=== PATIENT | male | born 2000 | race African-American/Black ===

== ENCOUNTER 2022-11-07 21:17 | Emergency (ER) | payer OTHER, SELFPAY ==
--- NOTE | ~2022-11-07 | XR_ITS ---
EXAMINATION: XR CHEST CLINICAL INFORMATION: Cough, congestion, chest pain. COMPARISON: None available. TECHNIQUE: 2 views of the chest were obtained. FINDINGS: Normal appearance of the cardiomediastinal silhouette. Mild peribronchial thickening. No focal infiltrate, pleural effusion or pneumothorax. The bony thorax is intact. XR/XR chest 2V IMPRESSION: Mild peribronchial thickening which could be seen with reactive airways disease or atypical/viral infections.
[2022-11-07 21:35] VITALS: BP 133/78; PULSE 92; RESP 18; TEMP 36.8; O2SAT 98; BMI 25.5
[2022-11-07 22:10] LABS: MANUAL DIFF FLAG NO
[2022-11-07 22:12] LABS: Basophils Percent Auto 0.4 % (0-2); Eosinophils Percent Auto 0.5 % (0-4); Hematocrit 46.4 % (42.0-52.0); Hemoglobin 15.7 g/dl (14.0-18.0); Imm Gran Abs Auto 0.02 X10*3/uL (0.00-0.03); Imm Gran Pct Auto 0.2 % (0.0-0.4); Lymphocytes Absolute Auto 1.5 X10*3/uL (1.2-4.9); Mean Corpuscular HGB Conc 33.8 g/dl (31.0-36.0); Mean Corpuscular Hemoglobin 29.6 pg (27.0-33.0); Mean Corpuscular Volume 87.5 fL (80.0-98.0); Mean Platelet Volume 11.2 fL (9.4-12.4); Monocytes Absolute Auto 0.9 X10*3/uL (0.1-1.2); Monocytes Percent Auto 10.8 % (2-11); Neutrophils Absolute Auto 5.8 x10*3/uL (2.0-8.3); Neutrophils Percent Auto 70.1 % (45-73); Platelet Count 214 X10*3/uL (160-400); Red Cell Distribution Width 13.2 % (11.0-16.0); White Blood Count 8.2 X10*3/uL (4.8-10.8)
[2022-11-07 22:24] LABS: Anion Gap 14 (12-20); Blood Urea Nitrogen 11 mg/dL (9-16); Calcium 9.1 mg/dL (8.4-10.2); Carbon Dioxide 27 mmol/L (22-29); Chloride 102 mmol/L (96-108); Creatinine Clr Calc Pharmacy 137.9; Estimated Glomerular Filt Rate > 60; Glucose Random 102 mg/dL (60-115); Sodium 139 mmol/L (135-145)
[2022-11-07 22:39] LABS: Troponin-I High Sensitivity < 2.7 ng/L (<3.5-35.0)
[2022-11-08 00:15] VITALS: BP 130/70; PULSE 81; RESP 18; O2SAT 98
--- NOTE | 2022-11-08 01:49 | ED_ITS ---
HPI - General Adult General Chief complaint: General Medical Stated complaint: Congestion/chest pain Time Seen by Provider: 11/08/22 01:43 Source: patient, RN notes reviewed and old records reviewed Mode of arrival: ambulatory Limitations: no limitations History of Present Illness HPI narrative: 22-year-old male presents for evaluation of cough, chest pain, shortness of breath. He also reports some upper abdominal pain that is worse after eating Reports chills but denies fevers He states his symptoms started ?after [place] a [place] on Saturday. ? He denies any medical history and does not take any medications daily His overall discomfort right now as a 12/15 Denies any sick contacts Related Data Previous Rx's Medication Instructions Recorded azithromycin 250 mg tablet See Rx Instructions PO .COMPLEX #6 11/08/22 tabs prednisone 20 mg tablet 40 mg PO DAILY #10 tabs 11/08/22 Allergies Allergy/AdvReac Type Severity Reaction Status Date / Time Unable to Assess Allergy Unverified 11/08/22 01:55 Review of Systems Constitutional: Constitutional: Denies body ache(s), Reports chills, Denies fever(s) and Denies headache(s) ENT: Denies headache(s), Reports nasal congestion and Denies sore throat Cardiovascular: Cardiovascular: Reports chest pain and Reports dyspnea Respiratory: Respiratory: Reports chest congestion, Reports cough, Reports pain on inspiration, Reports pain with cough and Reports dyspnea Gastrointestinal: Gastrointestinal: Reports abdominal pain, Denies nausea and Denies vomiting Musculoskeletal: Musculoskeletal: Denies back pain Integumentary/Breasts: Skin/Breast: Denies rash Neurologic: Denies headache(s) PMFSH Social History Social History Smoked in Last 30 Days: No Use of substances other than those prescribed or required for medical reasons: No Advance Directives: No Advance Directives Information Provided: No Physical Exam ED Vital Signs: Vital Signs - 24 hr 11/07/22 21:35 Temperature 98.3 F Pulse Rate 92 Respiratory Rate 85 H Blood Pressure 133/78 Pulse Oximetry 98 Oxygen Delivery Method Room Air BMI result Body Mass Index 25.5 Const General: healthy appearing, comfortable, no acute distress, alert and awake Nutritional Appearance: well nourished Orientation/consciousness: patient oriented x3 HENMT Head: Yes normocephalic and Yes atraumatic Throat: Yes posterior oropharynx normal Eyes Eyelids: Yes eyelids normal Conjunctivae: conjunctivae normal Sclerae: sclerae normal Corneas: corneas normal Pupils: Equal, round and reactive pupils present EOM: EOMs intact bilaterally Neck Neck: Yes full ROM Resp Effort & Inspection: normal respiratory effort, able to speak in complete sentences, no audible wheezes and not labored Auscultation: clear to auscultation bilaterally Cardio Rate: regular rate Rhythm: regular rhythm GI Inspection: No distended Palpation (GI): Soft to palpation, not firm, nontender, no guarding and not rigid Auscultation: normoactive bowel sounds Skin General skin exam: no rashes or lesions noted and elasticity normal Neuro General: patient oriented x3 Cranial nerves: Yes Equal, round and reactive pupils present and Yes Bilaterally intact EOM present Cognition (Neuro): normal cognition Extrem Other: Moving all extremities well without any obvious deformities Medical Decision Making Medical Decision Making [facility] Narrative: Healthy 22-year-old male with stable vital signs presents for evaluation of multiple complaints. His chief complaint is cough, shortness of breath and chest pain with inspiration. Chest x-ray is consistent with bronchitis. His abdomen is soft, nontender, nondistended. No indication of surgical abdomen. Labs are reviewed and reassuring. Will treat the patient with azithromycin and prednisone he will be discharged Differential Diagnosis Acute bronchitis Viral syndrome Upper respiratory infection Seasonal allergies Chest pain ACS Peptic ulcer disease GERD Cholelithiasis Lab Data [facility] Lab Attestation statement: I reviewed the patient's lab results. 11/07/22 22:03 11/07/22 22:03 Labs: Lab Results 11/07/22 11/07/22 11/07/22 Range/Units 22:03 22:03 22:03 WBC 8.2 (4.8-10.8) X10*3/uL RBC 5.30 (4.60-5.80) X10*6/uL Hgb 15.7 (14.0-18.0) g/dl Hct 46.4 (42.0-52.0) % MCV 87.5 (80.0-98.0) fL MCH 29.6 (27.0-33.0) pg MCHC 33.8 (31.0-36.0) g/dl RDW 13.2 (11.0-16.0) % Plt Count 214 (160-400) X10*3/uL MPV 11.2 (9.4-12.4) fL Immature Gran % (Auto) 0.2 (0.0-0.4) % Neut % (Auto) 70.1 (45-73) % Lymph % (Auto) 18.0 L (20-40) % Parke % (Auto) 10.8 (2-11) % Eos % (Auto) 0.5 (0-4) % Baso % (Auto) 0.4 (0-2) % Lymph # (Auto) 1.5 (1.2-4.9) X10*3/uL Parke # (Auto) 0.9 (0.1-1.2) X10*3/uL Eos # (Auto) 0.0 (0.0-0.4) X10*3/uL Baso # (Auto) 0.0 (0.0-0.2) X10*3/uL Abs Immat Gran (auto) 0.02 (0.00-0.03) X10*3/uL Absolute Neuts (auto) 5.8 (2.0-8.3) x10*3/uL Absolute Nucleated RBC 0.000 (0.0-0.012) X10*3/uL Nucleated RBC % (auto) 0.0 (0.0-0.2) /100WBC Sodium 139 (135-145) mmol/L Potassium 4.0 (3.3-5.1) mmol/L Chloride 102 (96-108) mmol/L Carbon Dioxide 27 (22-29) mmol/L Anion Gap 14 (12-20) BUN 11 (9-16) mg/dL Creatinine 0.86 (0.5-1.4) mg/dL Estim Creat Clear Calc 137.9 Estimated GFR > 60 Random Glucose 102 (60-115) mg/dL Calcium 9.1 (8.4-10.2) mg/dL Troponin I High Sens < 2.7 (<3.5-35.0) ng/L Independent Interpretation I performed an independent interpretation of an: Plain X-Ray Interpretation: No focal infiltrates Radiology Impression Discussion of test interpretation with radiology: I have reviewed the r adiologist's reading. (Peribronchial thickening) Discharge Plan Discharge Clinical Impression: Acute bronchitis Patient Disposition: Home, Self-Care Instructions: Acute Bronchitis (ED) Additional Instructions: Your chest x-ray was consistent with bronchitis. Your blood work was within normal limits Take azithromycin and prednisone as directed Hydrate well Follow-up with your primary doctor Prescriptions: New azithromycin 250 mg tablet See Rx Instructions .ROUTE .COMPLEX Qty: 6 0RF Rx Instructions: For 250 mg dose pack: take 500 mg today (day 1), then 250 mg for 4 days (days 2-5) prednisone 20 mg tablet 40 mg PO DAILY Qty: 10 0RF Stand Alone Forms: Work/School Release
[2022-11-08 02:00] VITALS: BP 134/76; PULSE 88; RESP 18; TEMP 36.9; O2SAT 99
== END 2022-11-08 02:03 | disposition home or self-care (01) ==
PROVIDERS: Emergency Provider Internal Medicine
DX: J20.9 Acute bronchitis, unspecified (principal); R06.02 Shortness of breath
CPT/HCPCS: 36415; 71046; 80048; 84484; 85025; 93005; 99283; 99284

== ENCOUNTER → 2023-01-31 08:42 | Outpatient (BNVA) | payer SELFPAY | PROVIDERS: Visit Provider Physician Assistant Medical | DX: Z02.79 Encounter for issue of other medical certificate (principal) ==